=== PATIENT | female | born 1965 | race Caucasian/White ===

== ENCOUNTER 2017-04-25 02:47 | Inpatient (IN) | payer MEDICAID ==
[~2017-04-25] VITALS: Ht 172.7 cm; Wt 108.3 kg
[2017-04-25] MEDS ORDERED: LIDOCAINE 1%, 20ML INFIL ONE (03:00)
[2017-04-25] MEDS ORDERED: CEFAZOLIN PMX 1GM/50ML 0 ML ONE (03:13)
[2017-04-25 03:29] LABS: ALBUMIN 3.8 g/dL (3.4-5.0); ANION GAP 10 mmol/L (5-15); CALCIUM 8.7 mg/dL (8.5-10.1); CHLORIDE 108 mmol/L (98-107); CREATININE 0.79 mg/dL (0.55-1.02)
[2017-04-25] MEDS ORDERED: CEFAZOLIN PMX 2GM/50ML 50 ML IV ONE (03:30)
[2017-04-25] MEDS ORDERED: PROPOFOL 10 MG/ML, 20ML ONE ×2 (03:42→14:04)
[2017-04-25 03:45] LABS: BASOPHILS # (AUTO) 0.03 x10^3/uL (0-0.1); BASOPHILS % (AUTO) 0 % (0-1); EOSINOPHILS # (AUTO) 0.14 x10^3/uL (0-0.4); EOSINOPHILS % (AUTO) 1 % (1-7); LYMPHOCYTES # (AUTO) 3.46 x10^3/uL (1-3.4); LYMPHOCYTES % (AUTO) 35 % (22-44); MD NO; MEAN CORPUSCULAR HEMOGLOBIN 29.8 pg (27.0-34.8); MEAN CORPUSCULAR HGB CONC 34.1 g/dL (32.4-35.8); MEAN CORPUSCULAR VOLUME 87.6 fL (80-100); MEAN PLATELET VOLUME 9.4 fL (7.4-10.4); MONOCYTES # (AUTO) 0.59 x10^3/uL (0.2-0.8); MONOCYTES % (AUTO) 6 % (2-9); NEUTROPHILS # (AUTO) 5.64 x10^3/uL (1.8-6.8); NEUTROPHILS % (AUTO) 57 % (42-75); PLATELET COUNT 260 x10^3/uL (130-400)
[2017-04-25] MEDS ORDERED: PROPOFOL 10 MG/ML, 20ML IVPush ONE (04:00)
[2017-04-25] MEDS ORDERED: POTASSIUM CHLORIDE 40 MEQ in D5%-0.45% NACL 1,000 ML IV ONE (05:38)
[2017-04-25] MEDS ORDERED: MORPHINE SULFATE 4 MG/ML, 1ML ONE (05:41)
[2017-04-25] MEDS ORDERED: ONDANSETRON 2MG/ML, 2ML IVPush PRN ×2 (06:00→16:30)
[2017-04-25] MEDS ORDERED: SODIUM CHLORIDE FLUSH 10ML SYR IVF PRN (06:00)
[2017-04-25] MEDS ORDERED: MORPHINE SULFATE 4 MG/ML, 1ML IVPush PRN ×2 (06:00→16:30)
[2017-04-25] MEDS ORDERED: MORPHINE SULFATE 4 MG/ML, 1ML IVPush ONE (06:00)
[2017-04-25 11:14] LABS: HCG UR SG 1.022 (1.003-1.030)
[2017-04-25] MEDS ORDERED: SUCCINYLCHOLINE 20 MG/ML, 10ML ONE (14:04)
[2017-04-25] MEDS ORDERED: DEXAMETHASONE 4 MG/ML, 1ML ONE (14:04)
[2017-04-25] MEDS ORDERED: MIDAZOLAM 1 MG/ML, 2ML ONE (14:04)
[2017-04-25] MEDS ORDERED: CEFAZOLIN 1,000 MG ONE (14:04)
[2017-04-25] MEDS ORDERED: ROCURONIUM 10 MG/ML,10ML ONE (14:04)
[2017-04-25] MEDS ORDERED: FENTANYL PF 100 MCG/2ML ONE ×2 (14:04→16:40)
[2017-04-25] MEDS ORDERED: ONDANSETRON 2MG/ML, 2ML ONE (14:04)
[2017-04-25] MEDS ORDERED: KETAMINE 10 MG/ML, 20ML ONE (14:20)
[2017-04-25] MEDS ORDERED: MIDAZOLAM 1 MG/ML, 2ML IV PRN (15:00)
[2017-04-25] MEDS ORDERED: HYDROmorphone 1 MG/ML, 1ML IV PRN (15:00)
[2017-04-25] MEDS ORDERED: ALBUTEROL SULFATE 2.5 MG/3 ML NPPB PRN (15:00)
[2017-04-25] MEDS ORDERED: PROMETHAZINE 25 MG/ML, 1ML IV PRN (15:00)
[2017-04-25] MEDS ORDERED: ACETAMINOPHEN 325 MG TABLET PO PRN (15:00)
[2017-04-25] MEDS ORDERED: OXYcodone 5 MG/5 ML ORAL.SOL UDC PO PRN (15:00)
[2017-04-25] MEDS ORDERED: KETOROLAC 30 MG/1 ML IV PRN (15:00)
[2017-04-25] MEDS ORDERED: OXYcodone 5 MG/5 ML ORAL.SOL UDC ONE (16:18)
[2017-04-25] MEDS ORDERED: ACETAMINOPHEN 650 MG/20.3 ML UDC ONE (16:18)
[2017-04-25] MEDS ORDERED: DIPHENHYDRAMINE 50 MG CAPSULE PO PRN (16:30)
[2017-04-25] MEDS ORDERED: SENNA/DOCUSATE TABLET PO PRN (16:30)
[2017-04-25] MEDS: KETOROLAC 30 MG/1 ML IVPush SCH (16:30)
[2017-04-25] MEDS ORDERED: PROMETHAZINE 25 MG/ML, 1ML IM PRN (16:30)
[2017-04-25] MEDS ORDERED: BISACODYL 10 MG SUPP PR PRN (16:30)
[2017-04-25] MEDS ORDERED: MAGNESIUM HYDROXIDE 8%, 30ML UDC PO PRN (16:30)
[2017-04-25] MEDS: FENTANYL PF 100 MCG/2ML IV PRN ×2 (16:42→16:55)
[2017-04-25] MEDS: D5%-0.45% NACL 1,000 ML IV SCH (17:41)
[2017-04-25 17:43] VITALS: BP 131/77
[2017-04-25 20:30] VITALS: BP 131/71
[2017-04-25] MEDS: OXYcodone IR 5MG TABLET PO PRN (21:16)
[2017-04-25] MEDS: CEFAZOLIN PMX 2GM/50ML 50 ML IVPB SCH (22:24)
[2017-04-25 23:51] VITALS: BP 137/74
[2017-04-26] MEDS: KETOROLAC 30 MG/1 ML IVPush SCH ×2 (00:01→08:35)
[2017-04-26] MEDS: OXYcodone IR 5MG TABLET PO PRN ×4 (02:30→15:15)
[2017-04-26 04:03] VITALS: BP 118/64
[2017-04-26] MEDS: CEFAZOLIN PMX 2GM/50ML 50 ML IVPB SCH (06:30)
[2017-04-26] MEDS: D5%-0.45% NACL 1,000 ML IV SCH (06:52)
[2017-04-26 07:35] VITALS: BP 133/77
[2017-04-26 13:50] VITALS: BP 118/84
[2017-04-26] MEDS ORDERED: OXYC5CAP2 PO (14:44)
[2017-04-26] MEDS ORDERED: ONDA4TAB7 PO (14:45)
[2017-04-26] MEDS ORDERED: DOCU-131 PO (14:45)
== END 2017-04-26 15:05 | disposition home or self-care (01) | DRG 494 ==
LOC: ED 03:20 → EDIP 05:38 → 4NOR 06:06 → DCLOUNGE 04-26 14:41
PROVIDERS: ADMIT Orthopaedic Surgery; ATTEND Orthopaedic Surgery
PROC: 0QSK04Z Reposition Left Fibula with Internal Fixation Device, Open Approach (ICD-10-PCS; 2017-04-25)
PROC: 0QSH04Z Reposition Left Tibia with Internal Fixation Device, Open Approach (ICD-10-PCS; principal; 2017-04-25 14:30)
DX: S82.853B Displaced trimalleolar fracture of unspecified lower leg, initial encounter for open fracture type I or II (principal); S09.90XA Unspecified injury of head, initial encounter; S93.03XA Subluxation of unspecified ankle joint, initial encounter; W01.0XXA Fall on same level from slipping, tripping and stumbling without subsequent striking against object, initial encounter; E87.6 Hypokalemia; F10.120 Alcohol abuse with intoxication, uncomplicated; F17.210 Nicotine dependence, cigarettes, uncomplicated; X50.1XXA Overexertion from prolonged static or awkward postures, initial encounter; Z98.82 Breast implant status; Y93.89 Activity, other specified
CPT/HCPCS: 27840; 36415; 70450; 76001; 80048; 80307; 81025; 82040; 85025; 96365; 96375; 99152; 99153; C1713; J0690; J1100; J1885; J2250; J2405; J2704; J3010; J3480; J0330

== ENCOUNTER 2018-01-04 02:41 | Emergency (ER) | payer MEDICAID ==
[~2018-01-04] VITALS: Ht 170.2 cm; Wt 70.0 kg
[~2018-01-04 02:41] MED LIST: DOCU-131 PO; ONDA4TAB7 PO; OXYC5CAP2 PO
[2018-01-04 03:47] VITALS: BP 138/70
== END 2018-01-04 04:08 | disposition home or self-care (01) ==
LOC: ED 03:41
DX: S00.81XA Abrasion of other part of head, initial encounter (principal); F17.200 Nicotine dependence, unspecified, uncomplicated; Y04.2XXA Assault by strike against or bumped into by another person, initial encounter; Y93.89 Activity, other specified; Y92.009 Unspecified place in unspecified non-institutional (private) residence as the place of occurrence of the external cause; Y99.8 Other external cause status
CPT/HCPCS: 99283

== ENCOUNTER 2019-02-16 13:03 | Emergency (ER) | payer MEDICAID ==
[~2019-02-16] VITALS: Ht 172.7 cm; Wt 98.3 kg
--- NOTE | 2019-02-16 13:22 | NUR ---
THIS IS A 53 YEAR OLD FEMALE WHO C/O OF COUGH AND SOB. PT HAS HX OF ASTHMA. 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
[2019-02-16] MEDS ORDERED: ALBUTEROL/IPRATROPIUM 2.5MG/0.5MG, 3 ML NEB ONE ×2 (13:30→15:30)
[2019-02-16] MEDS ORDERED: ALBUTEROL/IPRATROPIUM 2.5MG/0.5MG, 3 ML ONE (13:35)
--- NOTE | 2019-02-16 13:41 | NUR ---
PT RECEIVING BREATHING TREATMENT, TOLERATING WELL. DISCUSSED PLAN OF CARE
--- NOTE | 2019-02-16 13:54 | NUR ---
PT STATES SHE IS BREATHING BETTER, VERBALIZED NO NEEDS AT THIS TIME
[2019-02-16 14:06] LABS: BASOPHILS # (AUTO) 0.07 x10^3/uL (0-0.1); BASOPHILS % (AUTO) 1 % (0-1); EOSINOPHILS # (AUTO) 0.25 x10^3/uL (0-0.4); EOSINOPHILS % (AUTO) 3 % (1-7); LYMPHOCYTES # (AUTO) 4.74 x10^3/uL (1-3.4); LYMPHOCYTES % (AUTO) 51 % (22-44); MD NO; MEAN CORPUSCULAR HEMOGLOBIN 31.6 pg (27.0-34.8); MEAN CORPUSCULAR HGB CONC 33.6 g/dL (32.4-35.8); MEAN PLATELET VOLUME 9.6 fL (7.4-10.4); MONOCYTES # (AUTO) 0.71 x10^3/uL (0.2-0.8); MONOCYTES % (AUTO) 8 % (2-9); NEUTROPHILS # (AUTO) 3.54 x10^3/uL (1.8-6.8); NEUTROPHILS % (AUTO) 38 % (42-75); PLATELET COUNT 180 x10^3/uL (130-400); RED BLOOD COUNT 4.97 x10^6/uL (3.82-5.3); RED CELL DISTRIBUTION WIDTH 12.7 % (9.6-15.2)
[2019-02-16 14:15] LABS: ANION GAP 7 mmol/L (5-15); CALCIUM 9.2 mg/dL (8.5-10.1); CHLORIDE 110 mmol/L (98-107); CREATININE 0.77 mg/dL (0.55-1.02)
--- NOTE | 2019-02-16 14:16 | NUR ---
ASSUMED CARE OF PT.
--- NOTE | 2019-02-16 14:45 | NUR ---
all results back at this time pt up for recheck. as
--- NOTE | 2019-02-16 14:56 | NUR ---
VSS. PT REPORTS FEELING BETTER, DENIES SOB. 97% RA. CALL [facility] IN REACH NAD.
[2019-02-16 15:59] VITALS: BP 138/90
--- NOTE | 2019-02-16 15:59 | NUR ---
PT OOB TO BATHROOM, DENIES SOB. VSS. CALL [facility] IN REACH NAD.
== END 2019-02-16 16:35 | disposition home or self-care (01) ==
LOC: ED 14:03
DX: J45.31 Mild persistent asthma with (acute) exacerbation (principal); J06.9 Acute upper respiratory infection, unspecified; Z72.89 Other problems related to lifestyle; Z87.891 Personal history of nicotine dependence
CPT/HCPCS: 36415; 71046; 80048; 85025; 93005; 94640; 99284; J7512; J7620